=== PATIENT | female | born 1930 ===

== ENCOUNTER 2016-08-27 08:11 | Inpatient (IN) | payer MEDICAID, MEDICARE ==
--- NOTE | 2016-08-27 08:59 | ED PDOC ---
HPI: Back Time Seen by Provider: 08/27/16 08:39 Chief Complaint (Nursing): Back Pain Chief Complaint (Provider): Back Pain History Per: Family History/Exam Limitations: clinical condition Onset/Duration Of Symptoms: Hrs Current Symptoms Are (Timing): Still Present Quality Of Discomfort: "Pain" Severity: Mild Additional Complaint(s): Patient is a 86 year old female with a history of dementia, presents to ED with family for evaluation of lower back pain s/p fall this morning. As per family, patient was trying to get out of bed, fell backward onto her lower back. Fall was witnessed, no head injury or LOC. Patient reporting lower back pain and headache, denies extremity pain, vomiting or LOC Past Medical History Reviewed: Historical Data, Nursing Documentation, Vital Signs Vital Signs: Last Vital Signs Temp 98.2 F 08/27/16 08:21 Pulse 59 L 08/27/16 08:21 Resp 18 08/27/16 08:21 BP 135/57 L 08/27/16 08:21 Pulse Ox 97 08/27/16 08:21 - Medical History PMH: Dementia, Hyperlipidemia - Surgical History Surgical History: No Surg Hx - Family History Family History: States: Diabetes - Living Arrangements Living Arrangements: With Family - Home Medications Home Medications: Ambulatory Orders Medication Instructions Recorded Alendronate Sodium [Fosamax] 70 mg PO SAT 07/03/15 Calcium Carbonate/Vitamin D3 600 mg PO DAILY 07/03/15 [Calcium 600 + Vit D Softgel] Donepezil [Aricept] 10 mg PO DAILY 07/03/15 Memantine HCl [Namenda Xr] 28 mg PO DAILY 07/03/15 Rosuvastatin Calcium [Crestor] 5 mg PO HS 07/03/15 Levothyroxine [Synthroid] 0.025 mg PO DAILY 08/27/16 - Allergies Allergies/Adverse Reactions: Allergies Allergy/AdvReac Type Severity Reaction Status Date / Time Penicillins Allergy SHORTNESS Verified 08/27/16 08:27 OF BREATH Review of Systems Review Of Systems: ROS cannot be obtained secondary to pt's inabilty to answer questions. Physical Exam - Reviewed Nursing Documentation Reviewed: Yes Vital Signs Reviewed: Yes - Physical Exam Appears: Positive for: Non-toxic (elderly female, verbal but confused ), No Acute Distress Head Exam: Positive for: ATRAUMATIC, NORMAL INSPECTION Skin: Positive for: Normal Color, Warm Eye Exam: Positive for: Normal appearance, PERRL Neck: Positive for: Normal, Painless ROM Cardiovascular/Chest: Positive for: Regular Rate, Rhythm. Negative for: Murmur Respiratory: Positive for: Normal Breath Sounds. Negative for: Respiratory Distress Gastrointestinal/Abdominal: Positive for: Normal Exam. Negative for: Tenderness Back: Positive for: Normal Inspection, Other (lower back tenderness (-) deformity. Bilateral hips with full ROM) Extremity: Positive for: Normal ROM Neurologic/Psych: Positive for: Alert (but confused at baseline) - Laboratory Results Result Diagrams: 08/31/16 09:30 08/31/16 09:30 - ECG O2 Sat by Pulse Oximetry: 97 (RA) Pulse Ox Interpretation: Normal Medical Decision Making Medical Decision Making: Time: 834 Initial impression: Fall with back pain r/o fracture Initial plan: -- CT-cervical, head and lumbar -- Tylenol PO -- Pelvis one view LS CT reveals likely new compression fracture, d/w interventional radiology - likely no intervention. D/w Dr Lott neurosurgery will consult. Discussed findings w daughter. Admit medicine. Scribe Attestation: Documented by Dannielle Winston acting as a scribe for Tio Elkins DO MD Scribe Attestation: All medical record entries made by the Scribe were at my direction and personally dictated by me. I have reviewed the chart and agree that the record accurately reflects my personal performance of the history, physical exam, medical decision making, and the department course for this patient. I have also personally directed, reviewed, and agree with the discharge instructions and disposition. Disposition - Clinical Impression Clinical Impression: Compression fracture of lumbar vertebra - Patient ED Disposition Is Patient to be Admitted: Yes Counseled Patient/Family Regarding: Studies Performed, Diagnosis - Disposition Disposition Time: 13:00 Condition: GUARDED - Pt Status Changed To: Hospital Disposition Of: Inpatient - Admit Certification Admit to Inpatient:: After my assessment, the patient will require hospitalization for at least two midnights. This is because of the severity of symptoms shown, intensity of services needed, and/or the medical risk in this patient being treated as an outpatient. - POA Present On Arrival: Falls Or Trauma
--- NOTE | 2016-08-27 09:58 | CT ---
PROCEDURE: CT HEAD WITHOUT CONTRAST. HISTORY: r/o ICH fall headache COMPARISON: Comparison made with CT scan of the brain 07/08/2016. TECHNIQUE: Axial computed tomography images were obtained through the head/brain without intravenous contrast. Radiation dose: Total exam DLP = 773.12 mGy-cm. FINDINGS: HEMORRHAGE: No acute parenchymal, subarachnoid or extra-axial hemorrhage. BRAIN: Mild chronic periventricular white matter ischemic changes are present. In addition, there are a few scattered chronic bilateral basal nuclei lacunar type infarcts. Dense vascular calcifications are again noted VENTRICLES: Mild generalized volume loss CALVARIUM: No acute calvarial fractures. Hyperostosis frontalis interna again noted. PARANASAL SINUSES: Re- demonstrated is abnormality of the left maxillary antrum which may in part be due to incomplete pneumatization with mucosal thickening in the remaining aerated portion of the sinus versus sequela of chronic sinusitis and marked sclerosis. These changes however are stable since prior study MASTOID AIR CELLS: Unremarkable as visualized. No inflammatory changes. OTHER FINDINGS: None. IMPRESSION: No acute intracranial hemorrhage. Mild chronic periventricular white matter ischemic changes are present. In addition, there are a few scattered chronic bilateral basal nuclei lacunar type infarcts. Mild generalized volume loss.
--- NOTE | 2016-08-27 10:08 | CT ---
PROCEDURE: CT Lumbar Spine without contrast HISTORY: fall lower back pain COMPARISON: None. TECHNIQUE: Axial computed tomography images were obtained of the lumbar spine without the use of intravenous contrast. Coronal and sagittal reformatted images were created and reviewed. This CT scan was performed using one or more of the following dose reduction techniques: Automated exposure control, adjustment of the mA and or kV according to patient's size and or use of iterative technique Radiation dose: Total exam DLP = 1073.05 mGy-cm. FINDINGS: VERTEBRAE: The current study reveals mild endplate compression deformity most significant of which involve the L2 segment which could be acute/ subacute. In addition, there is chronic appearing deformity/Schmorl's node formation inferior L3 endplate. . No. There is minor retropulsion of the posterior superior corner of the L2 segment. In addition, minor fish-mouth endplate deformities seen at the remaining levels. There is straightening of the normal lumbar lordosis. Vertebral bodies facets are otherwise normally aligned. DISCS/SPINAL CANAL/NEURAL FORAMINA: Multilevel degenerative spondylosis. The L5-S1 level, there is marked disc space narrowing with endplate eburnation and small amount of vacuum disc phenomena. Small osteophytic ridge disc complex with hypertrophic facets. Central canal appears adequate. Exit foramina appear narrowed bilaterally right greater than left. At the L 4 L5 level, there is adequate disc height. Small broad-based disc bulge ridge complex and hypertrophic facets result in moderate central canal stenosis. There is bilateral lateral recess stenosis as well. Exit foramina appear marginal to adequate. At the L3-L4 level, disc material appears to have extended superiorly into endplate deformities/Schmorl's node. Minor broad-based disc bulge ridge complex of with hypertrophic facets result in minor central canal narrowing. Exit foramina are marginal to slightly narrowed. At the L1-L2 level, there is disc space narrowing with vacuum disc phenomena. As mentioned above, there is minor retropulsion of the posterior superior cortex of the L2 segment more so on the right side which results in mild central canal narrowing more so on the right than left. Facets also slightly overgrown. PARASPINAL SOFT TISSUES: Unremarkable. OTHER FINDINGS: None. IMPRESSION: There is a compression fracture of the L2 segment with mild retropulsion of the posterior superior cortex of the L2 segment which may be acute/subacute. Changes do result in mild decreased AP diameter of the canal more so on the right side. Multilevel degenerative spondylosis as detailed above.
--- NOTE | 2016-08-27 10:25 | CT ---
PROCEDURE: CT Cervical Spine without contrast HISTORY: <trauma r/o fx> COMPARISON: None available. TECHNIQUE: Axial computed tomography images were obtained of the cervical spine without the use of intravenous contrast. Coronal and sagittal reformatted images were created and reviewed. This CT scan was performed using one or more of the following dose reduction techniques: Automated exposure control, adjustment of the mA and or kV according to patient's size and or use of iterative technique . Radiation dose: Total exam DLP = 475.18 MGy-cm. FINDINGS: VERTEBRAE: No acute compression fractures no retropulsed fragments. Vertebral bodies exhibit normal the stature of. Vertebral bodies and facets normally aligned. There are mild diffuse demineralization changes with scattered lucencies likely in part some combination of demineralization at with possible scattered hemangiomata. The cortices however appear intact. Clinic correlation recommended to exclude the possibility of an infiltrative marrow disease process. DISCS/SPINAL CANAL/NEURAL FORAMINA: The disc space heights are relatively maintained. There are no disc herniation or significant disc bulges. The overall central bony canal appears adequate. The facet joints are mildly hypertrophic throughout. Minor degenerative squaring changes of the uncovertebral joints bilaterally at C3-C4, right more so than left at C4-C5 and minor of bilateral changes at C5-C6 and C6-C7. Exit foramina do appear adequate so as well. PARASPINAL SOFT TISSUES: Prevertebral and posterior paraspinal soft tissues unremarkable. OTHER FINDINGS: None. IMPRESSION: No acute fractures. Minor multilevel degenerative spondylosis. There scattered lucencies throughout the vertebral body segments which may represent some combination of demineralization and possibly a few scattered hemangiomata however the possibility of infiltrative marrow disease process not excluded. Clinic correlation recommended.
[2016-08-27 12:12] LABS: BASO # 0.1 K/uL (0.0-0.2); BASO % 0.8 % (0.0-2.0); EOS # 0.1 K/uL (0.0-0.7); EOS % 1.1 % (0.0-4.0); LYMPH # 2.6 K/uL (1.0-4.3); LYMPH % 27.2 % (20.0-40.0); MEAN CELL VOLUME 92.2 fl (81.0-99.0); MEAN CORPUSCULAR HGB CONC 32.6 g/dL (33.0-37.0); MONO # 0.8 K/uL (0.0-0.8); MONO % 8.6 % (0.0-10.0); NEUT # 5.9 K/uL (1.8-7.0); NEUT % 62.3 % (50.0-75.0); RED CELL DISTRIBUTION WIDTH 14.8 % (11.5-14.5); WHITE BLOOD COUNT 9.5 K/uL (4.8-10.8)
--- NOTE | 2016-08-27 13:19 | RAD ---
PROCEDURE: Radiographs of the pelvis. HISTORY: fall COMPARISON: None. FINDINGS: BONES: Pelvic Bones: Unremarkable. Hips: Grossly unremarkable. JOINTS: Sacroiliac Joints: Unremarkable. Pubic Symphysis: Unremarkable. OTHER FINDINGS: None. IMPRESSION: Unremarkable radiographs of the pelvis.
[2016-08-27 13:26] LABS: ALKALINE PHOSPHATASE 86 U/L (38-126); ALT/SGPT 25 U/L (9-52); AST/SGOT 46 U/L (14-36); BILIRUBIN,TOTAL 1.1 mg/dl (0.2-1.3); BLOOD UREA NITROGEN 13 mg/dl (7-17); CALCIUM 8.9 mg/dL (8.4-10.2); CARBON DIOXIDE 27 mmol/L (22-30); CHLORIDE 102 mmol/L (98-107); GFR AFRICAN-AMERICAN > 60; GLUCOSE,RANDOM 87 mg/dL (65-105); SODIUM 141 mmol/l (132-148); TOTAL PROTEIN 7.7 G/DL (6.3-8.2)
[2016-08-27 13:36] LABS: POTASSIUM 5.2 MMOL/L (3.6-5.0)
[2016-08-27 13:42] LABS: URINE COLOR YELLOW (YELLOW)
[2016-08-27 13:43] LABS: PH,URINE 7.5 (5.0-8.0); URINE BILIRUBIN NEGATIVE (NEGATIVE); URINE BLOOD NEGATIVE (NEGATIVE); URINE GLUCOSE (UA) NEGATIVE (Normal); URINE KETONE TRACE mg/dL (NEGATIVE); URINE LEUKOCYTE ESTERASE TRACE Leu/uL (Negative); URINE PROTEIN NEGATIVE (NEGATIVE); URINE UROBILINOGEN 0.2 mg/dL (0.2-1.0)
[2016-08-28] MEDS: Levothyroxine 25 MCG TAB PO SCH (06:31)
[2016-08-28 07:29] LABS: BLOOD UREA NITROGEN 11 mg/dl (7-17); CALCIUM 8.6 mg/dL (8.4-10.2); CARBON DIOXIDE 26 mmol/L (22-30); CHLORIDE 104 mmol/L (98-107); CHOLESTEROL 127 mg/dL (0-199); GFR AFRICAN-AMERICAN > 60; GLUCOSE,RANDOM 87 mg/dL (65-105); POTASSIUM 4.1 MMOL/L (3.6-5.0); SODIUM 139 mmol/l (132-148)
[2016-08-28 07:34] LABS: HEMATOCRIT 37.2 % (34.0-47.0); MEAN CELL VOLUME 90.7 fl (81.0-99.0); MEAN CORPUSCULAR HEMOGLOBIN 30.3 pg (27.0-31.0); MEAN CORPUSCULAR HGB CONC 33.4 g/dL (33.0-37.0); RED CELL DISTRIBUTION WIDTH 14.5 % (11.5-14.5); WHITE BLOOD COUNT 7.3 K/uL (4.8-10.8)
[2016-08-28 07:47] LABS: T4 9.06 ug/dl (5.5-11.0)
--- NOTE | 2016-08-28 09:02 | CARD ---
APPROVED REPORT EKG Measurement Heart [id number] <Conclusion> Normal sinus rhythm Normal ECG
[2016-08-28] MEDS: Calcium-Vit D 250 mg-125 Units Tab UD PO SCH (09:52)
--- NOTE | 2016-08-28 10:08 | CP.PCM.CON ---
History of Present Illness - History of Present Illness History of Present Illness: SPINE CONSULT Pt seen and examined. Full consult dictated. MRI to be done this afternoon. Will order extension brace. Pt will need TCU/[facility] post discharge. Past Patient History - Infectious Disease Hx of Infectious Diseases: None - Past Medical History & Family History Past Medical History?: Yes - Past Social History Smoking Status: Never Smoked - NEUROLOGICAL Hx Dementia: Yes - MUSCULOSKELETAL/RHEUMATOLOGICAL Hx Falls: Yes - PSYCHIATRIC Hx Substance Use: No Meds Allergies/Adverse Reactions: Allergies Allergy/AdvReac Type Severity Reaction Status Date / Time Penicillins Allergy SHORTNESS Verified 08/27/16 08:27 OF BREATH - Medications Medications: Current Medications Alprazolam (Xanax) 0.5 mg PO Q6 PRN PRN Reason: Agitation Last Admin: 08/27/16 22:46 Dose: 0.5 mg Calcium/Vitamin D (Oscal-D 250 Mg-125 Units Tab) 1 tab PO DAILY [facility] Last Admin: 08/28/16 09:52 Dose: 1 tab Donepezil HCl (Aricept) 10 mg PO HS [facility] Last Admin: 08/27/16 22:46 Dose: 10 mg Levothyroxine Sodium (Synthroid) 25 mcg PO DAILY@0630 [facility] Last Admin: 08/28/16 06:31 Dose: 25 mcg Results - Vital Signs Recent Vital Signs: Last Vital Signs Temp 98.0 F 08/28/16 08:19 Pulse 60 08/28/16 08:19 Resp 18 08/28/16 08:19 BP 149/76 08/28/16 08:19 Pulse Ox 97 08/28/16 08:19 - Labs Result Diagrams: 08/28/16 05:30 08/28/16 05:30 Labs: Laboratory Results - last 24 hr 08/27/16 08/28/16 12:08 05:30 WBC 9.5 7.3 RBC 4.23 4.11 Hgb 12.7 12.4 Hct 39.0 37.2 MCV 92.2 D 90.7 MCH 30.0 30.3 MCHC 32.6 L 33.4 RDW 14.8 H 14.5 Plt Count 113 L 102 L MPV 11.0 Neut % (Auto) 62.3 Lymph % (Auto) 27.2 [place] % (Auto) 8.6 Eos % (Auto) 1.1 Baso % (Auto) 0.8 Neut # 5.9 Lymph # 2.6 [place] # 0.8 Eos # 0.1 Baso # 0.1 Sodium 141 139 Potassium 5.2 H 4.1 Chloride 102 104 Carbon Dioxide 27 26 Anion Gap 17 14 BUN 13 11 Creatinine 0.4 L 0.4 L Est GFR ( Amer) > 60 > 60 Est GFR (Non-Af Amer) > 60 > 60 Random Glucose 87 87 Calcium 8.9 8.6 Total Bilirubin 1.1 AST 46 H D ALT 25 Alkaline Phosphatase 86 Total Protein 7.7 Albumin 3.9 Globulin 3.8 Albumin/Globulin Ratio 1.0 Triglycerides 91 Cholesterol 127 LDL Cholesterol Direct 47 HDL Cholesterol 58 Vitamin B12 637 Thyroxine (T4) 9.06 TSH 3rd Generation 3.90 Urine Color Yellow Urine Clarity Slight-cloudy Urine pH 7.5 Ur Specific [place] 1.010 Urine Protein Negative Urine Glucose (UA) Negative Urine Ketones Trace H Urine Blood Negative Urine Nitrate Negative Urine Bilirubin Negative Urine Urobilinogen 0.2 Ur Leukocyte Esterase Trace H Ur Squamous Epith Cells 1 Amorphous Sediment Occ H
--- NOTE | 2016-08-28 10:53 | CON ---
DATE: 08/28/2016 REASON FOR CONSULTATION: Fracture L2. HISTORY OF PRESENT ILLNESS: The patient is an 86-year-old, who unfortunately suffers from significan t dementia. She goes to a daycare center for the daytime and then has family taking care of her in t he evening and staying with her overnight every day. Evidently when they saw the patient, s he stated she had fallen on Tuesday and was complaining of some pain in her back. The family state s, prior to that, the mother was not complaining at all. The pain got worse over the course of into Tuesday and therefore was brought to the Emergency Room yesterday because of the pain. The f dereje is not aware of any loss of bowel or bladder control. She is feeling more comfortable today he re in the hospital and states, in [place]an to her daughter, that if she is lying flat, she is fine, it is just if she turns or has to get up for something, then it bothers her, but she was able to ambula te with assistance to the bathroom earlier today. PAST MEDICAL HISTORY: Significant for the dementia as mentioned and hyperlipidemia. MEDICATIONS: As listed include Fosamax, calcium and vitamin D, Aricept, Namenda, and Crestor. ALLERGIES: SHE IS ALLERGIC TO PENICILLIN IN THAT IT CAUSES SHORTNESS OF BREATH. PAST SURGICAL HISTORY: The daughter states the only surgical history she recalls is having hysterect ivdya more than 40 years ago. Again, no history is obtained from the patient due to her confusion. PHYSICAL EXAMINATION: She complains of tenderness to palpation in the mid to upper lumbar region. N o tenderness in the thoracic area and nothing down the lumbosacral junction. She moves both her lowe r extremities actively. She states sensation is intact to light touch. She appears to have good str ength throughout. No clonus or Babinski's. Distal pulses are okay. CAT scan was reviewed and it shows a fracture of L2 and the superior endplate There appears to be a Schmorl's node in the inferior endplate of L3. The posterior superior corner of L2 is retropulsed sl ightly, but no significant pressure on the cord. It is almost complete loss of disk space at the 5-1 level. There is some moderate stenosis at 4-5 and minor stenosis at 3-4. IMPRESSION: Probable acute compression fracture of L2, given the patient's history. However, I donnell ot really date the fracture from the CAT scan, so an MRI has been ordered. In the meantime, we will order an extension orthosis for her to wear when out of bed. She is very slight, so I do not think s he would tolerate a real big brace at all and again, she has some pain, but she has already been up a mbulating, so I think a light weight extension orthosis would be good for her. I explained to the carmen shaikh the natural history is she may be symptomatic over the next several weeks, but usually between the first and second month, patients notice a fair amount of improvement and by the third month, the fracture would be healed. We will have social service see the patient as she needs to be relatively independent when she goes to daycare center so that she is going to need either short term rehab in the TCU here or longer term in a subacute rehab until she is independent enough that she can once mor e go to the daycare center and be somewhat independent there as it is not strictly 1:1 attention. Thank you for allowing me to participate in the care of your patient. Gurmeet Capellan MD cc: [id number] TT: 08/28/2016 10:52:39 Confirmation # [id number] Dictation # [id number]
--- NOTE | 2016-08-28 16:15 | MRI ---
PROCEDURE: MR LUMBAR SPINE WITHOUT CONTRAST HISTORY: Fracture COMPARISON: CT from 08/27/2016. TECHNIQUE: Multiecho multiplanar sequences were performed through the lumbar spine without the use of intravenous contrast. Limited evaluation due to artifact from patient motion. FINDINGS: Straightening of lumbar lordosis. Acute/early subacute fracture involving the L2 vertebral body particularly the superior endplate. A small to moderate-sized retropulsed component is noted. Conus medullaris unremarkable at the level of L1. Paraspinal soft tissues are unremarkable. Mild disc space narrowing at L5-S1. T12-L1: No disc herniation, spinal canal stenosis or neural foraminal narrowing. L1-2: No disc herniation, spinal canal stenosis or neural foraminal narrowing. L2-3: No disc herniation, spinal canal stenosis or neural foraminal narrowing. L3-4: Mild posterior broad-based disc bulge. Minimal bilateral neural foraminal narrowing. Schmorl's node invading the inferior endplate. Mild central canal narrowing due to superimposed hypertrophic facets. L4-5: Mild posterior broad-based disc bulge. Minimal bilateral neural foraminal narrowing. L5-S1: Small broad-based disc bulge with narrowing of the central canal. There is mild narrowing of bilateral neural foramina appear OTHER FINDINGS: None. IMPRESSION: Acute/early subacute fracture of the superior endplate of the L2 vertebral body. A small to moderate-sized retro pulsed component is noted. Schmorl's node with inferior endplate involvement of the L3 vertebral body. Other degenerative changes as above.
--- NOTE | 2016-08-28 19:35 | CP.PCM.HP ---
History of Present Illness - History of Present Illness History of Present Illness: 86 y old female CC lower back pain and headache, Patient fell DOA in the morning, She try to get out of bed and fell on her lower back fall was witnessed by family there was no head injury or LOC Present on Admission - Present on Admission Any Indicators Present on Admission: No Review of Systems - Review of Systems Systems not reviewed;Unavailable: Dementia Past Patient History - Infectious Disease Hx of Infectious Diseases: None - Past Medical History & Family History Past Medical History?: Yes - Past Social History Smoking Status: Never Smoked Alcohol: None Drugs: Denies Home Situation {Lives}: With Family - CARDIAC Hx Cardiac Disorders: Yes Hx Hypercholesterolemia: Yes - PULMONARY Hx Respiratory Disorders: No - NEUROLOGICAL Hx Dementia: Yes - HEENT Hx HEENT Problems: No - RENAL Hx Chronic Kidney Disease: No - ENDOCRINE/METABOLIC Hx Hypothyroidism: Yes - HEMATOLOGICAL/ONCOLOGICAL Hx Blood Disorders: No - INTEGUMENTARY Hx Dermatological Problems: No - MUSCULOSKELETAL/RHEUMATOLOGICAL Hx Falls: Yes Hx Osteoporosis: Yes - GASTROINTESTINAL Hx Gastrointestinal Disorders: No - GENITOURINARY/GYNECOLOGICAL Hx Genitourinary Disorders: No - PSYCHIATRIC Hx Substance Use: No Other/Comment: Dementia - SURGICAL HISTORY Hx Surgeries: No - ANESTHESIA Hx Anesthesia: No Meds Allergies/Adverse Reactions: Allergies Allergy/AdvReac Type Severity Reaction Status Date / Time Penicillins Allergy SHORTNESS Verified 08/27/16 08:27 OF BREATH Physical Exam - Constitutional Appears: Chronically Ill - Head Exam Head Exam: NORMAL INSPECTION - Eye Exam Eye Exam: PERRL - ENT Exam ENT Exam: Normal Exam - Neck Exam Neck exam: Positive for: Normal Inspection - Respiratory Exam Respiratory Exam: NORMAL BREATHING PATTERN - Cardiovascular Exam Cardiovascular Exam: REGULAR RHYTHM - GI/Abdominal Exam GI & Abdominal Exam: Normal Bowel Sounds, Soft - Extremities Exam Extremities exam: Positive for: normal inspection - Back Exam Back exam: tenderness (lower back) - Neurological Exam Additional comments: confused , no focal motor sensory deficit - Psychiatric Exam Additional comments: confused, agitated at times , on 1:1 - Skin Skin Exam: Warm Results - Vital Signs Recent Vital Signs: Last Vital Signs Temp 97.9 F 08/28/16 17:40 Pulse 67 08/28/16 17:40 Resp 20 08/28/16 17:40 BP 152/80 H 08/28/16 17:40 Pulse Ox 98 04/01/17 17:40 - Labs Result Diagrams: 08/31/16 09:30 08/31/16 09:30 Assessment & Plan (1) Fall Status: Acute Priority: High (2) Compression fracture of lumbar vertebra Status: Chronic (3) Dementia Status: Chronic (4) Osteoporosis Status: Chronic (5) High cholesterol Status: Chronic (6) Hypothyroidism Status: Chronic - Assessment and Plan (Free Text) Plan: CT L-S Spine Acute compredion Fx L-2, continue Tylenol , lorazepam , 1:1 , Vit D , Synthroid , Orthopedic consult appreciated , brace was ordered , PT
[2016-08-29] MEDS: Levothyroxine 25 MCG TAB PO SCH (06:42)
[2016-08-29] MEDS: Calcium-Vit D 250 mg-125 Units Tab UD PO SCH (08:56)
[2016-08-30] MEDS: Levothyroxine 25 MCG TAB PO SCH (06:10)
[2016-08-30] MEDS: Calcium-Vit D 250 mg-125 Units Tab UD PO SCH (09:25)
--- NOTE | 2016-08-30 09:26 | PQF GENQUE ---
This form is a permanent part of the medical record 08/30/16 Dr. Rivera, Documentation of a history of Dementia. H&P confused, agitated at times on 1:1. Medications include Aricept and Xanax. Would you please clarify the TYPE of DEMENTIA if known and if it is associated with confusional state/delirium, behavioral disturbance, delusional or depressive features Clarification of your documentation is requested to better reflect the severity of illness and intensity of treatment of your patient. PHYSICIAN'S RESPONSE Based on your medical judgment of the clinical indicators outlined above please clarify the following: [] Practitioner response [] If unable to determine, please check the box, sign and date. Present On Admission (POA) Indicator: [] Present at the time of admission [] Not present at the time of admission [] Clinically Undetermined In responding to this query, please exercise your independent professional judgment. The fact that a question is asked does not imply that any particular answer is desired or expected. Thank you for your clarification on this documentation. If you have any questions please call:[phone] * Thank you, Montserrat Lagos RN [facility]
--- NOTE | 2016-08-30 09:35 | PQF GENQUE ---
This form is a permanent part of the medical record 08/30/16 , Would you please clarify the cause of the fracture: Traumatic compression fracture Nontraumatic compression fractureSecondary to Osteoporosis Other (please specify) Unable to determine Unknown Patient with a history of osteoporosis presents s/p fall. + acute compression fracture of L2. Treatment includes an extension back brace, PT evaluation, calcium with vitamin D and Tylenol. Clarification of your documentation is requested to better reflect the severity of illness and intensity of treatment of your patient. PHYSICIAN'S RESPONSE Would you please clarify the cause of the fracture: [ ] Traumatic compression fracture [ ] Nontraumatic compression fractureSecondary to Osteoporosis [ ] Other (please specify) [ ] Unable to determine [ ] Unknown Based on your medical judgment of the clinical indicators outlined above please clarify the following: [] Practitioner response [] If unable to determine, please check the box, sign and date. Present On Admission (POA) Indicator: [] Present at the time of admission [] Not present at the time of admission [] Clinically Undetermined In responding to this query, please exercise your independent professional judgment. The fact that a question is asked does not imply that any particular answer is desired or expected. Thank you for your clarification on this documentation. If you have any questions please call:[phone] * Thank you, Montserrat Lagos RN CDMP [facility]
--- NOTE | 2016-08-30 16:53 | CP.PCM.PN ---
Subjective - Date & Time of Evaluation Date of Evaluation: 08/30/16 Time of Evaluation: 12:40 - Subjective Subjective: F/u Fx. Lumbar vertebral. Pt Pt calm now, on 1:1, agitated at times, previous attempt to use the commode, Pt wants to walk but almost fall, c/o of L-S pain. Objective - Vital Signs/Intake and Output Vital Signs (last 24 hours): Temp Pulse Resp BP Pulse Ox 97.8 F 64 20 126/83 98 08/30/16 08:41 08/30/16 08:41 08/30/16 08:41 08/30/16 08:41 08/30/16 08:41 - Medications Medications: Current Medications Acetaminophen (Tylenol 325mg Tab) 650 mg PO Q4 PRN PRN Reason: Pain, moderate (4-7) Last Admin: 08/30/16 16:33 Dose: 650 mg Alprazolam (Xanax) 0.5 mg PO Q6 PRN PRN Reason: Agitation Last Admin: 08/30/16 16:27 Dose: 0.5 mg Calcium/Vitamin D (Oscal-D 250 Mg-125 Units Tab) 1 tab PO DAILY [facility] Last Admin: 08/30/16 09:25 Dose: 1 tab Donepezil HCl (Aricept) 10 mg PO HS [facility] Last Admin: 08/29/16 21:00 Dose: 10 mg Levothyroxine Sodium (Synthroid) 25 mcg PO DAILY@0630 [facility] Last Admin: 08/30/16 06:10 Dose: Not Given - Constitutional Appears: Chronically Ill - Head Exam Head Exam: NORMAL INSPECTION - Eye Exam Eye Exam: PERRL - ENT Exam ENT Exam: Normal Exam - Neck Exam Neck Exam: Normal Inspection - Respiratory Exam Respiratory Exam: NORMAL BREATHING PATTERN - Cardiovascular Exam Cardiovascular Exam: REGULAR RHYTHM - GI/Abdominal Exam GI & Abdominal Exam: Soft, Normal Bowel Sounds - Extremities Exam Extremities Exam: Normal Inspection - Back Exam Back Exam: tenderness (L-S) - Neurological Exam Neurological Exam: Awake Additional comments: Confused, no focal motor sensory deficit. - Psychiatric Exam Additional comments: Confused, agitated at times, on 1:1 - Skin Skin Exam: Warm Assessment and Plan (1) Fall Status: Acute (2) Compression fracture of lumbar vertebra Status: Chronic (3) Dementia Status: Chronic (4) Osteoporosis Status: Chronic (5) High cholesterol Status: Chronic (6) Hypothyroidism Status: Chronic - Assessment and Plan (Free Text) Plan: Continue Tylenol, Aricept, Synthroid, PT eval.
[2016-08-31] MEDS: Levothyroxine 25 MCG TAB PO SCH (06:20)
[2016-08-31] MEDS: Calcium-Vit D 250 mg-125 Units Tab UD PO SCH (08:31)
[2016-08-31 08:41] VITALS: RESP 20
[2016-08-31 10:03] LABS: HEMATOCRIT 38.9 % (34.0-47.0); MEAN CELL VOLUME 91.8 fl (81.0-99.0); MEAN CORPUSCULAR HEMOGLOBIN 30.6 pg (27.0-31.0); MEAN CORPUSCULAR HGB CONC 33.3 g/dL (33.0-37.0); RED CELL DISTRIBUTION WIDTH 14.8 % (11.5-14.5); WHITE BLOOD COUNT 7.2 K/uL (4.8-10.8)
[2016-08-31 10:17] LABS: BLOOD UREA NITROGEN 14 mg/dl (7-17); CALCIUM 8.5 mg/dL (8.4-10.2); CARBON DIOXIDE 25 mmol/L (22-30); CHLORIDE 102 mmol/L (98-107); GFR AFRICAN-AMERICAN > 60; GLUCOSE,RANDOM 124 mg/dL (65-105); POTASSIUM 3.8 MMOL/L (3.6-5.0); SODIUM 142 mmol/l (132-148)
--- NOTE | 2016-08-31 17:06 | CP.PCM.PN ---
Subjective - Date & Time of Evaluation Date of Evaluation: 08/31/16 Time of Evaluation: 12:00 - Subjective Subjective: F/U Fx of Lumbar vertebral, s/p fall. Calm, no AD , N/C Objective - Vital Signs/Intake and Output Vital Signs (last 24 hours): Temp Pulse Resp BP Pulse Ox 98.7 F 68 20 176/78 H 98 08/31/16 08:40 08/31/16 08:40 08/31/16 08:40 08/31/16 08:40 08/31/16 08:40 - Medications Medications: Current Medications Acetaminophen (Tylenol 325mg Tab) 650 mg PO Q4 PRN PRN Reason: Pain, moderate (4-7) Last Admin: 08/30/16 16:33 Dose: 650 mg Alprazolam (Xanax) 0.5 mg PO Q6 PRN PRN Reason: Agitation Last Admin: 08/31/16 08:36 Dose: 0.5 mg Calcium/Vitamin D (Oscal-D 250 Mg-125 Units Tab) 1 tab PO DAILY [facility] Last Admin: 08/31/16 08:31 Dose: 1 tab Donepezil HCl (Aricept) 10 mg PO HS [facility] Last Admin: 08/30/16 22:20 Dose: 10 mg Levothyroxine Sodium (Synthroid) 25 mcg PO DAILY@0630 [facility] Last Admin: 08/31/16 06:20 Dose: 25 mcg - Labs Labs: 08/31/16 09:30 08/31/16 09:30 - Constitutional Appears: Chronically Ill - Head Exam Head Exam: NORMAL INSPECTION - Eye Exam Eye Exam: PERRL - ENT Exam ENT Exam: Normal Exam - Neck Exam Neck Exam: Normal Inspection - Respiratory Exam Respiratory Exam: NORMAL BREATHING PATTERN - Cardiovascular Exam Cardiovascular Exam: REGULAR RHYTHM - GI/Abdominal Exam GI & Abdominal Exam: Soft, Normal Bowel Sounds - Extremities Exam Extremities Exam: Normal Inspection - Back Exam Back Exam: tenderness (L-S) - Neurological Exam Neurological Exam: Awake Additional comments: Confused, no focal motor/sensory deficit. - Psychiatric Exam Additional comments: Confused, on 1:1, agitated at times. - Skin Skin Exam: Warm Assessment and Plan (1) Fall Status: Acute (2) Compression fracture of lumbar vertebra Status: Chronic (3) Dementia Status: Chronic (4) Osteoporosis Status: Chronic (5) High cholesterol Status: Chronic (6) Hypothyroidism Status: Chronic - Assessment and Plan (Free Text) Plan: DC 1:1, awaiting L-S brace , continue Xanax and current treatment
[2016-09-01] MEDS: Levothyroxine 25 MCG TAB PO SCH (06:45)
[2016-09-01] MEDS: Enoxaparin 40 mg Syringe SC SCH (10:38)
[2016-09-01] MEDS: Calcium-Vit D 250 mg-125 Units Tab UD PO SCH (10:39)
--- NOTE | 2016-09-01 14:19 | CP.PCM.PN ---
Subjective - Date & Time of Evaluation Date of Evaluation: 09/01/16 Time of Evaluation: 09:20 - Subjective Subjective: F/U Fx Lumbar vertebral/ s/p fall. Pt c/o of L-S pain but doing well participating in short distance ambulation using a back brace and PT help. Objective - Vital Signs/Intake and Output Vital Signs (last 24 hours): Temp Pulse Resp BP Pulse Ox 98.1 F 57 L 20 128/75 97 09/01/16 08:57 09/01/16 08:57 09/01/16 08:57 09/01/16 08:57 09/01/16 08:57 - Medications Medications: Current Medications Acetaminophen (Tylenol 325mg Tab) 650 mg PO Q4 PRN PRN Reason: Pain, moderate (4-7) Last Admin: 08/30/16 16:33 Dose: 650 mg Alprazolam (Xanax) 0.5 mg PO Q6 PRN PRN Reason: Agitation Last Admin: 08/31/16 21:17 Dose: 0.5 mg Calcium/Vitamin D (Oscal-D 250 Mg-125 Units Tab) 1 tab PO DAILY [facility] Last Admin: 09/01/16 10:39 Dose: 1 tab Donepezil HCl (Aricept) 10 mg PO HS [facility] Last Admin: 08/31/16 21:17 Dose: 10 mg Enoxaparin Sodium (Lovenox) 40 mg SC DAILY [facility] PRN Reason: Protocol Last Admin: 09/01/16 10:38 Dose: 40 mg Levothyroxine Sodium (Synthroid) 25 mcg PO DAILY@0630 [facility] Last Admin: 09/01/16 06:45 Dose: 25 mcg - Labs Labs: 08/31/16 09:30 08/31/16 09:30 - Constitutional Appears: Chronically Ill - Head Exam Head Exam: NORMAL INSPECTION - Eye Exam Eye Exam: PERRL - ENT Exam ENT Exam: Normal Exam - Neck Exam Neck Exam: Normal Inspection - Respiratory Exam Respiratory Exam: NORMAL BREATHING PATTERN - Cardiovascular Exam Cardiovascular Exam: REGULAR RHYTHM - GI/Abdominal Exam GI & Abdominal Exam: Soft, Normal Bowel Sounds - Extremities Exam Extremities Exam: Normal Inspection - Back Exam Back Exam: tenderness (L-S) - Neurological Exam Neurological Exam: Awake Additional comments: Confused, agitated at times. No focal motor/sensory deficit. - Psychiatric Exam Additional comments: Confused. - Skin Skin Exam: Warm Assessment and Plan (1) Fall Status: Acute (2) Compression fracture of lumbar vertebra Status: Chronic (3) Dementia Status: Chronic (4) Osteoporosis Status: Chronic (5) High cholesterol Status: Chronic (6) Hypothyroidism Status: Chronic - Assessment and Plan (Free Text) Plan: Continue Lovenox, Tylenol, continue PT. SS working for rehab.
[2016-09-01 20:37] VITALS: BP 119/74; PULSE 80; TEMP 97.8
[2016-09-02] MEDS: Levothyroxine 25 MCG TAB PO SCH (06:13)
[2016-09-02] MEDS: Calcium-Vit D 250 mg-125 Units Tab UD PO SCH (09:28)
[2016-09-02] MEDS: Enoxaparin 40 mg Syringe SC SCH (09:29)
--- NOTE | 2016-09-02 14:41 | CP.PCM.PN ---
Subjective - Date & Time of Evaluation Date of Evaluation: 09/02/16 Time of Evaluation: 12:40 - Subjective Subjective: F/U Fx Lumbar Spine Pt c/o of L-S pain. Objective - Vital Signs/Intake and Output Vital Signs (last 24 hours): Temp Pulse Resp BP Pulse Ox 97.8 F 80 20 119/74 95 09/01/16 20:36 09/01/16 20:36 09/01/16 20:36 09/01/16 20:36 09/01/16 20:36 - Medications Medications: Current Medications Acetaminophen (Tylenol 325mg Tab) 650 mg PO Q4 PRN PRN Reason: Pain, moderate (4-7) Last Admin: 08/30/16 16:33 Dose: 650 mg Alprazolam (Xanax) 0.5 mg PO Q6 PRN PRN Reason: Agitation Last Admin: 09/02/16 06:13 Dose: 0.5 mg Calcium/Vitamin D (Oscal-D 250 Mg-125 Units Tab) 1 tab PO DAILY [facility] Last Admin: 09/02/16 09:28 Dose: Not Given Donepezil HCl (Aricept) 10 mg PO HS [facility] Last Admin: 09/01/16 23:00 Dose: 10 mg Enoxaparin Sodium (Lovenox) 40 mg SC DAILY [facility] PRN Reason: Protocol Last Admin: 09/02/16 09:29 Dose: Not Given Levothyroxine Sodium (Synthroid) 25 mcg PO DAILY@0630 [facility] Last Admin: 09/02/16 06:13 Dose: 25 mcg - Labs Labs: 08/31/16 09:30 08/31/16 09:30 - Constitutional Appears: Chronically Ill - Head Exam Head Exam: NORMAL INSPECTION - Eye Exam Eye Exam: PERRL - ENT Exam ENT Exam: Normal Exam - Neck Exam Neck Exam: Normal Inspection - Respiratory Exam Respiratory Exam: NORMAL BREATHING PATTERN - Cardiovascular Exam Cardiovascular Exam: REGULAR RHYTHM - GI/Abdominal Exam GI & Abdominal Exam: Soft, Normal Bowel Sounds - Extremities Exam Extremities Exam: Normal Inspection - Back Exam Back Exam: tenderness (L-S) - Neurological Exam Neurological Exam: Awake Additional comments: Confused, no focal motor/sensory deficit. - Psychiatric Exam Additional comments: Confused, agitated at times. Assessment and Plan (1) Fall Status: Acute (2) Compression fracture of lumbar vertebra Status: Chronic (3) Dementia Status: Chronic (4) Osteoporosis Status: Chronic (5) High cholesterol Status: Chronic (6) Hypothyroidism Status: Chronic - Assessment and Plan (Free Text) Plan: Pt improved and stable to be discharged to rehab facility.
[2016-09-03 16:38] VITALS: O2SAT 97
== END 2016-09-02 15:59 | DRG 243 ==
LOC: H.ER 08:11 → H.ERHOLD 11:58 → H.MEDSURG1 16:18 → OBSVTOIN 08-28 13:53 → H.MEDSURG1 08-31 17:42
PROVIDERS: ADMIT Internal Medicine Pulmonary Disease; ATTEND Internal Medicine Pulmonary Disease
DX: S32.020A Wedge compression fracture of second lumbar vertebra, initial encounter for closed fracture (principal); F03.91 Unspecified dementia, unspecified severity, with behavioral disturbance; W19.XXXA Unspecified fall, initial encounter; Y93.9 Activity, unspecified; Y92.9 Unspecified place or not applicable; Y99.9 Unspecified external cause status; M81.0 Age-related osteoporosis without current pathological fracture; E78.00 Pure hypercholesterolemia, unspecified; E03.9 Hypothyroidism, unspecified; E78.5 Hyperlipidemia, unspecified; Z88.0 Allergy status to penicillin

== ENCOUNTER 2017-02-26 20:25 | Inpatient (IN) | payer MEDICARE, MEDICAID ==
[2017-02-26 21:33] LABS: VENOUS BLOOD GAS BASE EXCESS 6.1 mmol/L (0.0-2.0); VENOUS BLOOD GAS PCO2 49 mmHg (40-60); VENOUS BLOOD PH 7.42 (7.32-7.43)
--- NOTE | 2017-02-26 21:34 | ED PDOC ---
HPI: CCC, URI, Sore Throat Time Seen by Provider: 02/26/17 20:34 Chief Complaint (Nursing): Cough, Cold, Congestion Chief Complaint (Provider): Productive cough History Per: Patient, EMS History/Exam Limitations: no limitations Onset/Duration Of Symptoms: Days (x 6days) Current Symptoms Are (Timing): Still Present Associated Symptoms: Cough. denies: Fever, Vomiting, Diarrhea Additional Complaint(s): Patient is an 86 y/o female presenting to the ED by EMS complaining of a productive cough for 6 days. She notes that the cough is worsening with more phlegm and notes associated fatigue. According to EMS personnel she was hypoxic on room air, however she is currently not hypoxic. She denies fever, difficulty breathing, chest pain, vomiting, diarrhea, headache or any other symptoms. Patient lives in a correction and has a history of hypertension, osteoporosis , and dementia. PCP: Seth Botello Past Medical History Reviewed: Historical Data, Nursing Documentation, Vital Signs Vital Signs: Last Vital Signs Temp 100 F H 02/26/17 20:26 Pulse 67 02/26/17 22:20 Resp 18 02/26/17 20:37 BP 120/55 L 02/26/17 20:37 Pulse Ox 99 02/26/17 22:20 - Medical History PMH: Dementia, HTN, Hypercholesterolemia, Hyperlipidemia, Hypothyroidism, Osteoporosis Denies: Chronic Kidney Disease - Surgical History Surgical History: No Surg Hx - Family History Family History: States: No Known Family Hx, Diabetes - Social History Current smoker - smoking cessation education provided: No Alcohol: None Drugs: Denies - Home Medications Home Medications: Ambulatory Orders Medication Instructions Recorded Alendronate Sodium [Fosamax] 70 mg PO SAT 07/03/15 Calcium Carbonate/Vitamin D3 600 mg PO DAILY 07/03/15 [Calcium 600-Vit D3 500 Softgel] Donepezil [Aricept] 10 mg PO DAILY 07/03/15 Memantine HCl [Namenda Xr] 28 mg PO DAILY 07/03/15 Rosuvastatin Calcium [Crestor] 5 mg PO HS 07/03/15 Levothyroxine [Synthroid] 0.025 mg PO DAILY 08/27/16 - Allergies Allergies/Adverse Reactions: Allergies Allergy/AdvReac Type Severity Reaction Status Date / Time Penicillins Allergy SHORTNESS Verified 08/27/16 08:27 OF BREATH Review of Systems ROS Statement: Except As Marked, All Systems Reviewed And Found Negative Constitutional: Positive for: Other (fatigue). Negative for: Fever ENT: Negative for: Throat Pain Cardiovascular: Negative for: Chest Pain Respiratory: Positive for: Cough, Other (negative difficulty breathing). Negative for: Shortness of Breath Gastrointestinal: Negative for: Nausea, Vomiting, Diarrhea Neurological: Negative for: Headache Physical Exam - Reviewed Nursing Documentation Reviewed: Yes - Physical Exam Appears: Positive for: No Acute Distress Head Exam: Positive for: ATRAUMATIC, NORMOCEPHALIC Skin: Positive for: Normal Color, Warm, Dry Eye Exam: Positive for: Normal appearance, EOMI ENT: Positive for: Normal ENT Inspection Neck: Positive for: Normal, Supple Cardiovascular/Chest: Positive for: Regular Rate, Rhythm. Negative for: JVD, Murmur Respiratory: Positive for: Normal Breath Sounds. Negative for: Wheezing, Respiratory Distress Gastrointestinal/Abdominal: Positive for: Soft. Negative for: Tenderness Extremity: Negative for: Pedal Edema Lymphatic: Positive for: Normal Exam. Negative for: Adenopathy Neurologic/Psych: Positive for: Alert, Oriented (x2) - Laboratory Results Result Diagrams: 02/26/17 21:25 02/26/17 21:25 - ECG ECG Rhythm: Positive for: Normal QRS, Normal ST Segment (no ST changes), Sinus Rhythm Rate: 67 O2 Sat by Pulse Oximetry: 99 (RA) Pulse Ox Interpretation: Normal Medical Decision Making Medical Decision Making: Time: 2116 Initial Impression: Fever and cough Differential: Pneumonia, bronchitis, congestive heart failure, rule out sepsis Initial Plan: -VBG Shock Panel -EKG -Labs -Chest XR -Blood culture -Reevluation 2154 -Chest XRay read by me. Right lower lobe opacities, most likely infiltrates Scribe Attestation: Documented by Joann Marie, acting as a scribe for Kervin Shaw MD Provider Scribe Attestation: All medical record entries made by the Scribe were at my direction and personally dictated by me. I have reviewed the chart and agree that the record accurately reflects my personal performance of the history, physical exam, medical decision making, and the department course for this patient. I have also personally directed, reviewed, and agree with the discharge instructions and disposition. Disposition - Clinical Impression Clinical Impression: Pneumonia - Patient ED Disposition Is Patient to be Admitted: Yes Discussed With DrThai: Kole Edward Doctor Will See Patient In The: ED Counseled Patient/Family Regarding: Studies Performed, Diagnosis - Disposition Referrals: Seth Botello MD [Family Provider] - Disposition Time: 22:15 Condition: FAIR - Pt Status Changed To: Hospital Disposition Of: Inpatient - Admit Certification Admit to Inpatient:: After my assessment, the patient will require hospitalization for at least two midnights. This is because of the severity of symptoms shown, intensity of services needed, and/or the medical risk in this patient being treated as an outpatient. - POA Present On Arrival: None
[2017-02-26 21:48] LABS: BASO % 0.4 % (0.0-2.0); EOS # 0.2 K/uL (0.0-0.7); EOS % 1.6 % (0.0-4.0); HEMATOCRIT 36.2 % (34.0-47.0); LYMPH # 1.7 K/uL (1.0-4.3); LYMPH % 15.5 % (20.0-40.0); MEAN CORPUSCULAR HEMOGLOBIN 30.3 pg (27.0-31.0); MEAN CORPUSCULAR HGB CONC 32.9 g/dL (33.0-37.0); MEAN PLATELET VOLUME 11.1 fl (7.2-11.7); MONO % 9.5 % (0.0-10.0); NEUT # 7.9 K/uL (1.8-7.0); RED CELL DISTRIBUTION WIDTH 14.5 % (11.5-14.5); WHITE BLOOD COUNT 10.8 K/uL (4.8-10.8)
[2017-02-26 21:49] LABS: BLOOD UREA NITROGEN 14 mg/dl (7-17); CALCIUM 8.7 mg/dL (8.4-10.2); CARBON DIOXIDE 26 mmol/L (22-30); CHLORIDE 101 mmol/L (98-107); GFR AFRICAN-AMERICAN > 60; GLUCOSE,RANDOM 100 mg/dL (65-105); POTASSIUM 4.4 MMOL/L (3.6-5.0); SODIUM 138 mmol/l (132-148)
[2017-02-26] MEDS ORDERED: Cefepime 1 GM in Sodium Chloride 0.9% 100 ML IVPB STA (22:10)
[2017-02-26] MEDS ORDERED: Clindamycin 600 MG in Sodium Chloride 0.9% 100 ML IVPB ONE (22:13)
--- NOTE | 2017-02-26 22:27 | CP.PCM.HP ---
History of Present Illness - History of Present Illness History of Present Illness: PCP: Seth Botello MD Chief complaint: Coughing/ Hypoxemia The patient was seen and examined in the ED HPI: The Hx was obtained from the Patient's daughter and review of the medical records. She is an 86 years old female who resides at the [facility] and has hx of Dementia, Hypothyroidism and HLD. She was brought to the ED because of 6 days of worsening productive cough associated with fatigue and found to be hypoxic on room air by the EMS. No vomits, fever, diarrhea. In the Ed the patient was febrile. PMH: Dementia, HTN, HLD, Hypothyroidism, Osteoporosis, macular degeneration of the Right Eye; compression fracture of the lumbar spine; TB treated 7 years ago PSH: No Surg Hx SH: No illegal drug use; No smoking of cigarettes; No alcohol use; live at the [facility] FH: Significant for DM Allergies: PCN Present on Admission - Present on Admission Any Indicators Present on Admission: No History of DVT/PE: No History of Uncontrolled Diabetes: No Urinary Catheter: No Decubitus Ulcer Present: No Review of Systems - Review of Systems Systems not reviewed;Unavailable: Dementia Review of Systems: Review of systems limited as the patient has severe dementia - Constitutional Constitutional: absent: Headache - EENT Eyes: absent: Diplopia Ears: absent: Decreased Hearing, Ear Pain Nose/Mouth/Throat: absent: Epistaxis, Nasal Congestion, Nasal Discharge - Cardiovascular Cardiovascular: absent: Leg Edema - Respiratory Respiratory: Cough, Dyspnea Past Patient History - Infectious Disease Hx of Infectious Diseases: None - Past Medical History & Family History Past Medical History?: Yes - Past Social History Smoking Status: Never Smoked Chewing Tobacco Use: No Cigar Use: No Alcohol: None Drugs: Denies Home Situation {Lives}: Retirement - CARDIAC Hx Hypercholesterolemia: Yes Hx Hypertension: Yes - PULMONARY Hx Respiratory Disorders: No - NEUROLOGICAL Hx Dementia: Yes - HEENT Hx Macular Degeneration: Yes (Rt eye) - RENAL Hx Chronic Kidney Disease: No - ENDOCRINE/METABOLIC Hx Hypothyroidism: Yes - HEMATOLOGICAL/ONCOLOGICAL Hx Blood Disorders: No - INTEGUMENTARY Hx Dermatological Problems: No - MUSCULOSKELETAL/RHEUMATOLOGICAL Hx Osteoporosis: Yes - GASTROINTESTINAL Hx Gastrointestinal Disorders: No - GENITOURINARY/GYNECOLOGICAL Hx Genitourinary Disorders: No - PSYCHIATRIC Hx Substance Use: No Other/Comment: Dementia - SURGICAL HISTORY Hx Surgeries: No - ANESTHESIA Hx Anesthesia: No Meds Allergies/Adverse Reactions: Allergies Allergy/AdvReac Type Severity Reaction Status Date / Time Penicillins Allergy SHORTNESS Verified 08/27/16 08:27 OF BREATH Physical Exam - Constitutional Appears: No Acute Distress - Head Exam Head Exam: ATRAUMATIC, NORMAL INSPECTION, NORMOCEPHALIC - Eye Exam Eye Exam: EOMI, Normal appearance Pupil Exam: NORMAL ACCOMODATION, PERRL - ENT Exam ENT Exam: Mucous Membranes Moist, Normal Exam - Neck Exam Neck exam: Positive for: Full Rom, Normal Inspection. Negative for: Lymphadenopathy, Tenderness - Respiratory Exam Respiratory Exam: Clear to Auscultation Bilateral. absent: Rales, Rhonchi, Wheezes - Cardiovascular Exam Cardiovascular Exam: REGULAR RHYTHM, RRR, +S1, +S2. absent: JVD, Rubs - GI/Abdominal Exam GI & Abdominal Exam: Normal Bowel Sounds, Soft. absent: Mass, Organomegaly, Tenderness - Rectal Exam Rectal Exam: Deferred - Extremities Exam Extremities exam: Positive for: full ROM, normal inspection. Negative for: calf tenderness, joint swelling - Back Exam Back exam: NORMAL INSPECTION. absent: CVA tenderness (L), CVA tenderness (R) - Neurological Exam Neurological exam: Alert, CN II-XII Intact, Reflexes Normal - Psychiatric Exam Psychiatric exam: Flat Affect - Skin Skin Exam: Dry, Intact, Normal Color, Warm Results - Vital Signs Recent Vital Signs: Last Vital Signs Temp 100 F H 02/26/17 20:26 Pulse 67 02/26/17 22:21 Resp 18 02/26/17 20:37 BP 120/55 L 02/26/17 20:37 Pulse Ox 99 02/26/17 22:21 - Labs Result Diagrams: 02/26/17 21:25 02/26/17 21:25 Labs: Laboratory Results - last 24 hr 02/26/17 02/26/17 02/26/17 21:25 21:25 21:25 WBC 10.8 RBC 3.93 Hgb 11.9 L Hct 36.2 MCV 92.0 MCH 30.3 MCHC 32.9 L RDW 14.5 Plt Count 141 MPV 11.1 Neut % (Auto) 73.0 Lymph % (Auto) 15.5 L [place] % (Auto) 9.5 Eos % (Auto) 1.6 Baso % (Auto) 0.4 Neut # 7.9 H Lymph # 1.7 [place] # 1.0 H Eos # 0.2 Baso # 0.0 pO2 28 L VBG pH 7.42 VBG pCO2 49 VBG HCO3 28.5 VBG Total CO2 33.3 H VBG O2 Sat (Calc) 61.6 VBG Base Excess 6.1 H VBG Potassium 4.9 Sodium 138 133.0 Chloride 101 102.0 Glucose 106 H Lactate 0.7 FiO2 21.0 Potassium 4.4 Carbon Dioxide 26 Anion Gap 15 BUN 14 Creatinine 0.4 L Est GFR ( Amer) > 60 Est GFR (Non-Af Amer) > 60 Random Glucose 100 Calcium 8.7 Troponin I < 0.0120 NT-Pro-B Natriuret Pep 284 Venous Blood Potassium 4.9 - EKG Data EKG comments: NSR 67/min - Imaging and Cardiology Chest x-ray Status: Image reviewed by me Additional comment: Poor inspiration left Cardiophrenic infiltrate Assessment & Plan - Assessment and Plan (Free Text) Assessment: #. Bronchitis r/o Pneumonia #. Hypothyroidism #. Dementia #. HLD#. Plan: 86 years old female who resides at the [facility] and has hx of Dementia, Hypothyroidism and HLD. She was brought to the ED because of 6 days of worsening productive cough associated with fatigue and found to be hypoxic on room air by the EMS. No vomits, fever, diarrhea. In the Ed the patient was febrile. #. Bronchitis r/o Pneumonia - consult Dr Ward pulmonary - Cefepime - Azithromycin -Robitussin #. Hypothyroidism - Synthroid - #. Dementia - Namenda - Hold Aricept - #. HLD - Crestor #. DVT Prophylaxis with Lovenox #. Code Status: Full - Date & Time Date: 02/26/17 Time: 22:27
[2017-02-26] MEDS ORDERED: Azithromycin 500 MG in Sodium Chloride 0.9% 250 ML IVPB STA (23:13)
[2017-02-26] MEDS ORDERED: guaiFENesin 100 mg/5 ml Syrup UD PO PRN (23:21)
[2017-02-26] MEDS ORDERED: Magnesium Hydroxide Susp 30 ml UD PO PRN (23:23)
[2017-02-26] MEDS: Sodium Chloride 0.9% 1,000 ML IV SCH (23:32)
[2017-02-27] MEDS: Levothyroxine 25 MCG TAB PO SCH (07:08)
[2017-02-27] MEDS ORDERED: ROSUVASTATIN CALCIUM PO SCH (09:00)
[2017-02-27] MEDS: Enoxaparin 40 mg Syringe SC SCH (09:26)
[2017-02-27] MEDS ORDERED: Sodium Chloride 3% for Inhalation 4 ML VIAL.NEB IH PRN (09:29)
--- NOTE | 2017-02-27 10:05 | RAD ---
PROCEDURE: CHEST RADIOGRAPH, 1 VIEW HISTORY: cough COMPARISON: 07/03/2015 FINDINGS: LUNGS: Mild interstitial changes are appreciated. Low lung volumes are noted with bibasilar crowding. Small area of nodular density in the right lower lung field probably reflects overlap of soft tissue and bony structures. PLEURA: No obvious effusion or pneumothorax. CARDIOVASCULAR: No overt CHF. Heart is unchanged. OSSEOUS STRUCTURES: No significant abnormalities. VISUALIZED UPPER ABDOMEN: Normal. OTHER FINDINGS: None. IMPRESSION: Nonspecific mild interstitial changes. Bibasilar crowding and low lung volumes.
[2017-02-27] MEDS: Cefepime 2 GM in Sodium Chloride 0.9% 100 ML IVPB SCH ×2 (10:19→17:08)
--- NOTE | 2017-02-27 11:42 | CP.PCM.PN ---
Subjective - Date & Time of Evaluation Date of Evaluation: 02/27/17 Time of Evaluation: 11:00 - Subjective Subjective: Daughter at bedside- discussed test results and treatment plan Pt is febrile - low grade fever at 100 + cough feels weak but better Pt has dementia thus in NH denies CP no SOB no abd pain Objective - Vital Signs/Intake and Output Vital Signs (last 24 hours): Temp Pulse Resp BP Pulse Ox 100.0 F H 66 18 120/66 98 02/27/17 07:44 02/27/17 09:26 02/27/17 07:44 02/27/17 09:26 02/27/17 07:44 - Medications Medications: Current Medications Acetaminophen (Tylenol 325mg Tab) 650 mg PO Q4 PRN PRN Reason: fever or pain Alprazolam (Xanax) 0.5 mg PO Q6 PRN PRN Reason: Anxiety Atorvastatin Calcium (Lipitor) 10 mg PO DAILY [facility] Last Admin: 02/27/17 09:27 Dose: 10 mg Bisacodyl (Dulcolax) 10 mg NC DAILY [facility] Last Admin: 02/27/17 09:27 Dose: 10 mg Enoxaparin Sodium (Lovenox) 40 mg SC DAILY [facility] PRN Reason: Protocol Last Admin: 02/27/17 09:26 Dose: 40 mg Guaifenesin (Robitussin) 5 mg PO Q6H PRN PRN Reason: Cough and congestion Cefepime HCl 2 gm/ Sodium (Chloride) 100 mls @ 100 mls/hr IVPB Q8 [facility] Last Admin: 02/27/17 10:19 Dose: 100 mls/hr Azithromycin 500 mg/ Sodium (Chloride) 250 mls @ 250 mls/hr IVPB DAILY@2300 [facility] Sodium Chloride (Sodium Chloride 0.9%) 1,000 mls @ 75 mls/hr IV .[id number] [facility] Stop: 02/27/17 23:16 Last Admin: 02/26/17 23:32 Dose: 75 mls/hr Influenza Virus Vaccine (Afluria (Pf)(18yr & Older)) 0.5 ml IM .ONCE ONE Stop: 02/27/17 16:01 Levothyroxine Sodium (Synthroid) 25 mcg PO DAILY@0630 [facility] Last Admin: 02/27/17 07:08 Dose: 25 mcg Lisinopril (Zestril) 5 mg PO DAILY [facility] Last Admin: 02/27/17 09:26 Dose: 5 mg Magnesium Hydroxide (Milk Of Magnesia) 30 ml PO HS PRN PRN Reason: Constipation - Labs Labs: 02/26/17 21:25 02/26/17 21:25 - Constitutional Appears: No Acute Distress, Chronically Ill - Head Exam Head Exam: NORMAL INSPECTION, NORMOCEPHALIC - Eye Exam Eye Exam: Normal appearance Pupil Exam: NORMAL ACCOMODATION - ENT Exam ENT Exam: Mucous Membranes Moist, Normal External Ear Exam - Neck Exam Neck Exam: Full ROM. absent: Meningismus - Respiratory Exam Respiratory Exam: Rhonchi, NORMAL BREATHING PATTERN. absent: Wheezes, Respiratory Distress - Cardiovascular Exam Cardiovascular Exam: REGULAR RHYTHM, +S1, +S2 - GI/Abdominal Exam GI & Abdominal Exam: Soft, Normal Bowel Sounds. absent: Tenderness - Extremities Exam Extremities Exam: Full ROM, Normal Capillary Refill. absent: Calf Tenderness, Pedal Edema - Back Exam Back Exam: absent: CVA tenderness (L), CVA tenderness (R) - Neurological Exam Neurological Exam: Alert, Awake Additional comments: oriented to person moves all extremities follows simple commands - Psychiatric Exam Psychiatric exam: Flat Affect - Skin Skin Exam: Dry, Normal Color, Warm Assessment and Plan - Assessment and Plan (Free Text) Assessment: 86 years old female who resides at the [facility] and has hx of Dementia, Hypothyroidism and HLD, was brought to the ED because of 6 days of worsening productive cough associated with fatigue and found to be hypoxic on room air by the EMS. No vomits, fever, diarrhea. In the ED the patient was febrile at 100. 1. Acute Bronchitis r/o Early Pneumonia - Pt has cough, fever - Blood c/s, Sputum c/s, Legionella, Influenza swab , Mycoplasma - cont IV Cefepime and Azithro - Pulm consulted- Dr Ward 2. Hypothyroidism - cont Synthroid - 3. Dementia - Namenda - Hold Aricept 4. Hyperlipidemia - cont Crestor #. DVT Prophylaxis with Lovenox #. Code Status: Full Surrogate Decision maker : daughter Saadia
[2017-02-27] MEDS: Sodium Chloride 0.9% 1,000 ML IV SCH (13:28)
[2017-02-27] MEDS ORDERED: Albuterol 0.083% Inhal Sol (2.5 mg/3 mL) UD INH PRN (14:33)
[2017-02-27] MEDS ORDERED: Influenza Vaccine 18yr & older 0.5 ML/45 MCG SYR IM ONE (16:00)
[2017-02-27] MEDS ORDERED: Influenza Vaccine(65YR UP)/PF 180 MCG/0.5 ML SYRINGE IM ONE (16:00)
[2017-02-27] MEDS ORDERED: Azithromycin 500 MG in Sodium Chloride 0.9% 250 ML IVPB SCH (23:00)
--- NOTE | 2017-02-27 23:31 | CP.PCM.CON ---
History of Present Illness - History of Present Illness History of Present Illness: Had sx of increase in sob, phlegm, and cough. Positive sig 2nd hand smoke from . Allergies: PCN. Fam Hx NonCont. S/ Stated she's not symptomatic. O/ VSS Afeb Head neg adeno pos kassy Heart RRR, ns1s2, Neg M Lungs Clear to A & P. No, C,C,E. Neuro Non Focal. Labs see below. a/p Acute Resp Insuff ?Pneumnia / tracheobronchitis. Cont IV Abx. Cont with TERESITA. Cont with previous meds. Maintain O2 Sat > 89%. Spoke with daughter. She can f/u with me as an outpatient. Can change abx to PO by Tuesday and be d/c from Pulmonary point of view. Signing out of this case. Please call again if condition does not improve or worsens. Tx you for this consult. Past Patient History - Infectious Disease Hx of Infectious Diseases: None - Past Medical History & Family History Past Medical History?: Yes - Past Social History Smoking Status: Never Smoked Chewing Tobacco Use: No Cigar Use: No Alcohol: None Drugs: Denies Home Situation {Lives}: Skilled Nursing - CARDIAC Hx Hypercholesterolemia: Yes Hx Hypertension: Yes - PULMONARY Hx Respiratory Disorders: No - NEUROLOGICAL Hx Dementia: Yes - HEENT Hx Macular Degeneration: Yes (Rt eye) - RENAL Hx Chronic Kidney Disease: No - ENDOCRINE/METABOLIC Hx Hypothyroidism: Yes - HEMATOLOGICAL/ONCOLOGICAL Hx Blood Disorders: No - INTEGUMENTARY Hx Dermatological Problems: No - MUSCULOSKELETAL/RHEUMATOLOGICAL Hx Osteoporosis: Yes - GASTROINTESTINAL Hx Gastrointestinal Disorders: No - GENITOURINARY/GYNECOLOGICAL Hx Genitourinary Disorders: No - PSYCHIATRIC Hx Substance Use: No Other/Comment: Dementia - SURGICAL HISTORY Hx Surgeries: No - ANESTHESIA Hx Anesthesia: No Meds Allergies/Adverse Reactions: Allergies Allergy/AdvReac Type Severity Reaction Status Date / Time Penicillins Allergy SHORTNESS Verified 08/27/16 08:27 OF BREATH - Medications Medications: Current Medications Acetaminophen (Tylenol 325mg Tab) 650 mg PO Q4 PRN PRN Reason: fever or pain Albuterol Sulfate (Albuterol 0.083% Inhal Magali (2.5 Mg/3 Ml) Ud) 2.5 mg INH RQ6 PRN PRN Reason: Shortness of Breath Alprazolam (Xanax) 0.5 mg PO Q6 PRN PRN Reason: Anxiety Last Admin: 02/27/17 12:39 Dose: 0.5 mg Atorvastatin Calcium (Lipitor) 10 mg PO DAILY [facility] Last Admin: 02/27/17 09:27 Dose: 10 mg Bisacodyl (Dulcolax) 10 mg SC DAILY [facility] Last Admin: 02/27/17 09:27 Dose: 10 mg Enoxaparin Sodium (Lovenox) 40 mg SC DAILY [facility] PRN Reason: Protocol Last Admin: 02/27/17 09:26 Dose: 40 mg Guaifenesin (Robitussin) 5 mg PO Q6H PRN PRN Reason: Cough and congestion Cefepime HCl 2 gm/ Sodium (Chloride) 100 mls @ 100 mls/hr IVPB Q8 [facility] Last Admin: 02/27/17 17:08 Dose: 100 mls/hr Azithromycin 500 mg/ Sodium (Chloride) 250 mls @ 250 mls/hr IVPB DAILY@2300 [facility] Last Admin: 02/27/17 23:09 Dose: 250 mls/hr Levothyroxine Sodium (Synthroid) 25 mcg PO DAILY@0630 [facility] Last Admin: 02/27/17 07:08 Dose: 25 mcg Lisinopril (Zestril) 5 mg PO DAILY [facility] Last Admin: 02/27/17 09:26 Dose: 5 mg Magnesium Hydroxide (Milk Of Magnesia) 30 ml PO HS PRN PRN Reason: Constipation Results - Vital Signs Recent Vital Signs: Last Vital Signs Temp 97.3 F L 02/27/17 16:23 Pulse 56 L 02/27/17 16:23 Resp 20 02/27/17 16:23 BP 95/58 L 02/27/17 16:23 Pulse Ox 96 02/27/17 16:23 - Labs Result Diagrams: 02/26/17 21:25 02/26/17 21:25 Labs: Laboratory Results - last 24 hr 02/27/17 02/27/17 02/27/17 08:30 11:14 15:49 Procalcitonin 0.06 L Influenza Typ A,B (EIA) Negative for flu a/b Ur L.pneumophila Ag Negative
[2017-02-28] MEDS: Cefepime 2 GM in Sodium Chloride 0.9% 100 ML IVPB SCH ×2 (01:50→13:14)
[2017-02-28 06:49] LABS: ALKALINE PHOSPHATASE 89 U/L (38-126); ALT/SGPT 22 U/L (9-52); AST/SGOT 25 U/L (14-36); BILIRUBIN,TOTAL 0.7 mg/dl (0.2-1.3); BLOOD UREA NITROGEN 12 mg/dl (7-17); CALCIUM 8.4 mg/dL (8.4-10.2); CARBON DIOXIDE 23 mmol/L (22-30); CHLORIDE 110 mmol/L (98-107); GFR AFRICAN-AMERICAN > 60; GLUCOSE,RANDOM 79 mg/dL (65-105); POTASSIUM 4.2 MMOL/L (3.6-5.0); SODIUM 143 mmol/l (132-148)
[2017-02-28] MEDS: Levothyroxine 25 MCG TAB PO SCH (07:06)
[2017-02-28 07:07] LABS: ALB/GLOB RATIO 1.1 (1.0-2.1)
--- NOTE | 2017-02-28 08:16 | CARD ---
APPROVED REPORT EKG Measurement Heart [id number] <Conclusion> Normal sinus rhythm Normal ECG
[2017-02-28 08:48] VITALS: BP 130/79; PULSE 58; RESP 20; TEMP 97.9; O2SAT 94
[2017-02-28] MEDS ORDERED: guaiFENesin 100 mg/5 ml Syrup UD PO PRN (10:15)
--- NOTE | 2017-02-28 10:47 | CP.PCM.DIS ---
Provider - Provider Date of Admission: 02/26/17 22:16 Attending physician: Kole Edward Primary care physician: Dr. Botello Consults: pulmonary consult Time Spent in preparation of Discharge (in minutes): 20 Hospital Course - Lab Results Lab Results: Micro Results 02/27/17 17:54 Sputum Gram Stain - Final 02/26/17 21:30 Blood Blood Culture - Preliminary NO GROWTH AFTER 24 HOURS 02/26/17 21:30 Blood Blood Culture - Preliminary NO GROWTH AFTER 24 HOURS Most Recent Lab Values WBC 10.8 K/uL (4.8-10.8) 02/26/17 21:25 RBC 3.93 Mil/uL (3.80-5.20) 02/26/17 21:25 Hgb 11.9 g/dL (12.0-16.0) L 02/26/17 21:25 Hct 36.2 % (34.0-47.0) 02/26/17 21:25 MCV 92.0 fl (81.0-99.0) 02/26/17 21:25 MCH 30.3 pg (27.0-31.0) 02/26/17 21:25 MCHC 32.9 g/dL (33.0-37.0) L 02/26/17 21:25 RDW 14.5 % (11.5-14.5) 02/26/17 21:25 Plt Count 141 K/uL (130-400) 02/26/17 21:25 MPV 11.1 fl (7.2-11.7) 02/26/17 21:25 Neut % (Auto) 73.0 % (50.0-75.0) 02/26/17 21:25 Lymph % (Auto) 15.5 % (20.0-40.0) L 02/26/17 21:25 [place] % (Auto) 9.5 % (0.0-10.0) 02/26/17 21:25 Eos % (Auto) 1.6 % (0.0-4.0) 02/26/17 21:25 Baso % (Auto) 0.4 % (0.0-2.0) 02/26/17 21:25 Neut # 7.9 K/uL (1.8-7.0) H 02/26/17 21:25 Lymph # 1.7 K/uL (1.0-4.3) 02/26/17 21:25 [place] # 1.0 K/uL (0.0-0.8) H 02/26/17 21:25 Eos # 0.2 K/uL (0.0-0.7) 02/26/17 21:25 Baso # 0.0 K/uL (0.0-0.2) 02/26/17 21:25 pO2 28 mm/Hg (30-55) L 02/26/17 21:25 VBG pH 7.42 (7.32-7.43) 02/26/17 21:25 VBG pCO2 49 mmHg (40-60) 02/26/17 21:25 VBG HCO3 28.5 mmol/L 02/26/17 21:25 VBG Total CO2 33.3 mmol/L (22-28) H 02/26/17 21:25 VBG O2 Sat (Calc) 61.6 % (40-65) 02/26/17 21:25 VBG Base Excess 6.1 mmol/L (0.0-2.0) H 02/26/17 21:25 VBG Potassium 4.9 mmol/L (3.6-5.2) 02/26/17 21:25 Sodium 133.0 mmol/L (132-148) 02/26/17 21:25 Chloride 102.0 mmol/L (98-107) 02/26/17 21:25 Glucose 106 mg/dL (65-105) H 02/26/17 21:25 Lactate 0.7 mmol/L (0.7-2.1) 02/26/17 21:25 FiO2 21.0 % 02/26/17 21:25 Sodium 143 mmol/l (132-148) 02/28/17 06:00 Potassium 4.2 MMOL/L (3.6-5.0) 02/28/17 06:00 Chloride 110 mmol/L (98-107) H 02/28/17 06:00 Carbon Dioxide 23 mmol/L (22-30) 02/28/17 06:00 Anion Gap 14 (10-20) 02/28/17 06:00 BUN 12 mg/dl (7-17) 02/28/17 06:00 Creatinine 0.4 mg/dL (0.7-1.2) L 02/28/17 06:00 Est GFR ( Amer) > 60 02/28/17 06:00 Est GFR (Non-Af Amer) > 60 02/28/17 06:00 Random Glucose 79 mg/dL (65-105) 02/28/17 06:00 Calcium 8.4 mg/dL (8.4-10.2) 02/28/17 06:00 Total Bilirubin 0.7 mg/dl (0.2-1.3) 02/28/17 06:00 AST 25 U/L (14-36) 02/28/17 06:00 ALT 22 U/L (9-52) 02/28/17 06:00 Alkaline Phosphatase 89 U/L (38-126) 02/28/17 06:00 Troponin I < 0.0120 ng/mL (0.00-0.120) 02/26/17 21:25 NT-Pro-B Natriuret Pep 284 pg/ml (0-900) 02/26/17 21:25 Total Protein 6.0 G/DL (6.3-8.2) L 02/28/17 06:00 Albumin 3.1 g/dL (3.5-5.0) L D 02/28/17 06:00 Globulin 2.9 gm/dL (2.2-3.9) 02/28/17 06:00 Albumin/Globulin Ratio 1.1 (1.0-2.1) 02/28/17 06:00 Procalcitonin 0.06 NG/ML (0.19-0.49) L 02/27/17 08:30 TSH 3rd Generation 1.10 mIU/ML (0.46-4.68) 02/28/17 06:00 Venous Blood Potassium 4.9 mmol/L (3.6-5.2) 02/26/17 21:25 Influenza Typ A,B (EIA) Negative for flu a/b (NEGATIVE) 02/27/17 11:14 Ur L.pneumophila Ag Negative (NEGATIVE) 02/27/17 15:49 - Hospital Course Hospital Course: 86 years old female who resides at the [facility] and has hx of Dementia, Hypothyroidism and HLD, was brought to the ED because of 6 days of worsening productive cough associated with fatigue and found to be hypoxic on room air by the EMS. No vomits, fever, diarrhea. In the ED the patient was febrile at 100.CXR showed no clear infiltrates but patient has been having thick yellowish sputum production and increased cough. She was admitted with diagnosis of tracheobronchitis and started on Cefepime , zithromax IV, nMucinex and dUonebs PRN Pulmonary was consulted patient clinically showed improvement, afebrile, hemodynamically stable, with coughing spell sbut able to expectorate sputum Will discharge patient dela cruz to [place] on levaquine PO for 7 molre days 1. Acute tracheobronchitis Patient presented with hypoxia, fever, cough and sputum production CXr showed no claer infiltrates pulmonary consultexcd received Cefepime and Azithromycin for 2 days. will switch to PO levaquine and d/c to [place] Follow up with PMD Dr. Botello 2. Hypothyroidism cont Synthroid 3. Dementia Namenda and aricept 4. Hyperlipidemia cont Crestor 5.HTN controlled continue same meds Discharge Exam - Head Exam Head Exam: NORMAL INSPECTION, NORMOCEPHALIC - Eye Exam Eye Exam: EOMI, Normal appearance, PERRL Pupil Exam: NORMAL ACCOMODATION - ENT Exam ENT Exam: Mucous Membranes Moist, Normal Exam - Neck Exam Neck exam: Full Rom, Normal Inspection - Respiratory Exam Respiratory Exam: NORMAL BREATHING PATTERN. absent: Rales, Wheezes, Respiratory Distress - Cardiovascular Exam Cardiovascular Exam: REGULAR RHYTHM, RRR, +S1, +S2. absent: JVD - GI/Abdominal Exam GI & Abdominal Exam: Normal Bowel Sounds, Soft. absent: Distended, Guarding, Rebound, Tenderness - Rectal Exam Rectal Exam: Deferred - Extremities Exam Extremities exam: normal capillary refill, normal inspection, pedal pulses present - Back Exam Back exam: NORMAL INSPECTION - Neurological Exam Neurological exam: Alert, CN II-XII Intact Additional comments: no gross neuro deficits - Psychiatric Exam Psychiatric exam: Normal Affect - Skin Skin Exam: Dry, Normal Color, Warm Discharge Plan - Discharge Medications Prescriptions: levoFLOXacin [Levaquin] 500 mg PO DAILY #7 tab - Follow Up Plan Condition: STABLE Disposition: TRANSF TO [facility] Patient education suggested?: Yes Instructions: Acute Bronchitis (GEN) Referrals: Seth Botello MD [Family Provider] -
[2017-02-28] MEDS: Enoxaparin 40 mg Syringe SC SCH (13:13)
== END 2017-02-28 15:05 | DRG 203 ==
LOC: H.ER 20:25 → H.ERHOLD 22:16 → H.MEDSURG1 22:57
PROVIDERS: ADMIT Internal Medicine; ATTEND Internal Medicine
DX: J20.9 Acute bronchitis, unspecified (principal); F03.90 Unspecified dementia, unspecified severity, without behavioral disturbance, psychotic disturbance, mood disturbance, and anxiety; I10 Essential (primary) hypertension; R09.02 Hypoxemia; Z88.0 Allergy status to penicillin; M81.0 Age-related osteoporosis without current pathological fracture; E78.00 Pure hypercholesterolemia, unspecified; E78.5 Hyperlipidemia, unspecified; E03.9 Hypothyroidism, unspecified; H35.30 Unspecified macular degeneration; Z87.310 Personal history of (healed) osteoporosis fracture